=== PATIENT | female | born 1965 | race Caucasian/White ===

== ENCOUNTER 2020-01-18 09:21 | Emergency (ER) | payer MEDICARE, OTHER ==
[~2020-01-18] VITALS: Ht 167.6 cm; Wt 65.0 kg
[2020-01-18] MEDS ORDERED: MEDROL4 M1 PO (09:51)
[2020-01-18] MEDS ORDERED: GABAPENTIN100 MG PO (09:51)
[2020-01-18] MEDS ORDERED: LASIX 40 MG TAB40 MG PO (09:52)
[2020-01-18] MEDS ORDERED: KLOR-CON SPRIN10 MEQ PO (09:52)
[2020-01-18] MEDS ORDERED: BACLOFEN10 MG PO (09:53)
[2020-01-18] MEDS ORDERED: XANAX0.5 MG PO (09:54)
[2020-01-18] MEDS ORDERED: ULTRAM50 MG PO (11:12)
[2020-01-18] MEDS ORDERED: KEFLEX500 MG PO (11:12)
[2020-01-18 11:50] VITALS: BP 91/52
== END 2020-01-18 11:50 | disposition home or self-care (01) ==
LOC: ED 09:21
DX: S00.03XA Contusion of scalp, initial encounter (principal); S16.1XXA Strain of muscle, fascia and tendon at neck level, initial encounter; S30.0XXA Contusion of lower back and pelvis, initial encounter; S80.812A Abrasion, left lower leg, initial encounter; S80.811A Abrasion, right lower leg, initial encounter; I95.9 Hypotension, unspecified; W07.XXXA Fall from chair, initial encounter; Y93.89 Activity, other specified

== ENCOUNTER 2020-02-04 18:46 | Emergency (ER) | payer MEDICARE, OTHER ==
[~2020-02-04] VITALS: Ht 167.6 cm; Wt 62.7 kg
[~2020-02-04 18:46] MED LIST: BACLOFEN10 MG PO; GABAPENTIN100 MG PO; KEFLEX500 MG PO; KLOR-CON SPRIN10 MEQ PO; LASIX 40 MG TAB40 MG PO; MEDROL4 M1 PO; ULTRAM50 MG PO; XANAX0.5 MG PO
[2020-02-04] MEDS ORDERED: METHYLPRED4 MG PO (19:19)
[2020-02-04] MEDS ORDERED: PROCARDIA XL30 MG PO (19:21)
[2020-02-04] MEDS ORDERED: VIAGRA25 MG PO (19:21)
[2020-02-04] MEDS ORDERED: TRAMADOL HYDROC50 M1 PO (19:37)
[2020-02-04] MEDS ORDERED: KEFLEX500 M1 PO (19:37)
[2020-02-04 19:48] VITALS: BP 126/82
== END 2020-02-04 19:48 | disposition home or self-care (01) ==
LOC: ED 18:46
DX: S81.811A Laceration without foreign body, right lower leg, initial encounter (principal); L08.9 Local infection of the skin and subcutaneous tissue, unspecified; F17.210 Nicotine dependence, cigarettes, uncomplicated; W19.XXXA Unspecified fall, initial encounter

== ENCOUNTER 2020-07-21 11:40 | Emergency (ER) | payer MEDICARE, OTHER ==
[~2020-07-21] VITALS: Ht 167.6 cm; Wt 68.0 kg
[~2020-07-21 11:40] MED LIST changes: +KEFLEX500 M1 PO; -KLOR-CON SPRIN10 MEQ PO; +METHYLPRED4 MG PO; +POTASSIUM CHLO10 ME3 PO; +PROCARDIA XL30 MG PO; +TRAMADOL HYDROC50 M1 PO; +VIAGRA25 MG PO
[2020-07-21] MEDS ORDERED: FAMCICLOVIR500 MG PO ×2 (12:47→12:50)
[2020-07-21] MEDS ORDERED: TRAMADOL HYDROC50 M1 PO (12:47)
[2020-07-21] MEDS ORDERED: NEURONTIN300 MG PO (12:56)
[2020-07-21] MEDS ORDERED: ULTRAM50 M1 PO (12:58)
[2020-07-21 13:05] VITALS: BP 120/70
[2020-07-22] MEDS ORDERED: LIDOCAINE TOP (12:36)
== END 2020-07-21 13:05 | disposition home or self-care (01) ==
LOC: ED 11:40
DX: B02.9 Zoster without complications (principal); J44.9 Chronic obstructive pulmonary disease, unspecified; F17.210 Nicotine dependence, cigarettes, uncomplicated

== ENCOUNTER 2020-07-27 16:01 | Emergency (ER) | payer MEDICARE, OTHER ==
[~2020-07-27] VITALS: Ht 167.6 cm; Wt 72.0 kg
[~2020-07-27 16:01] MED LIST changes: +FAMCICLOVIR500 MG PO; +LIDOCAINE TOP; +NEURONTIN300 MG PO; +ULTRAM50 M1 PO
[2020-07-27] MEDS ORDERED: VALTREX1 GM PO (16:49)
[2020-07-27 16:56] VITALS: BP 112/68
== END 2020-07-27 17:03 | disposition home or self-care (01) ==
LOC: ED 16:01
DX: B02.9 Zoster without complications (principal); J44.9 Chronic obstructive pulmonary disease, unspecified; F17.200 Nicotine dependence, unspecified, uncomplicated

== ENCOUNTER 2021-04-05 13:59 | Emergency (ER) | payer MEDICARE, OTHER ==
[~2021-04-05] VITALS: Ht 167.6 cm; Wt 54.5 kg
[~2021-04-05 13:59] MED LIST changes: +VALTREX1 GM PO
[2021-04-05] MEDS ORDERED: KEFLEX500 MG PO (15:24)
[2021-04-05 16:04] VITALS: BP 120/87
== END 2021-04-05 15:55 | disposition home or self-care (01) ==
LOC: ED 13:59
DX: S81.812A Laceration without foreign body, left lower leg, initial encounter (principal); J44.9 Chronic obstructive pulmonary disease, unspecified; F17.210 Nicotine dependence, cigarettes, uncomplicated; W22.8XXA Striking against or struck by other objects, initial encounter; Y92.009 Unspecified place in unspecified non-institutional (private) residence as the place of occurrence of the external cause

== ENCOUNTER 2022-06-15 11:43 | Emergency (ER) | payer MEDICARE, MEDICAID ==
[~2022-06-15] VITALS: Ht 167.6 cm; Wt 54.8 kg
[2022-06-15 12:25] VITALS: BP 144/85
[2022-06-15 12:30] VITALS: BP 142/77
[2022-06-15 12:45] VITALS: BP 119/75
[2022-06-15 12:59] LABS: URINE BILIRUBIN - DIPSTICK NEGATIVE (NEGATIVE); URINE BLOOD DIPSTICK SMALL (NEGATIVE); URINE COLOR YELLOW; URINE GLUCOSE - DIPSTICK NEGATIVE (NEGATIVE); URINE KETONE NEGATIVE (NEGATIVE); URINE LEUK ESTERASE NEGATIVE (NEGATIVE); URINE PH 6.5 (4.5-8.0); URINE PROTEIN - DIPSTICK NEGATIVE (NEG-TRACE); URINE SPECIFIC GRAVITY <=1.005; URINE UROBILINOGEN - DIPSTICK 0.2 E.U./dL (0.2)
[2022-06-15 13:03] LABS: URINE NITRITE - DIPSTICK POSITIVE (Negative)
[2022-06-15 13:04] LABS: URINE RBC 0-2 RBC/hpf (0-5)
[2022-06-15 13:05] LABS: URINE BACTERIA RARE hpf
[2022-06-15] MEDS ORDERED: NAPROXEN500 MG PO (13:11)
[2022-06-15] MEDS ORDERED: LORTAB 5/3255 MG PO (13:11)
[2022-06-15] MEDS ORDERED: METHOCARBAMOL500 MG PO (13:11)
[2022-06-15] MEDS ORDERED: PREDNISONE20 MG PO (13:11)
[2022-06-15] MEDS ORDERED: LORTAB 7.57.5 MG PO (14:44)
[2022-06-15 15:20] VITALS: BP 144/85
[2022-06-15] MEDS ORDERED: PREDNISONE10 MG PO (15:32)
== END 2022-06-15 15:20 | disposition home or self-care (01) ==
LOC: ED 11:43
PROVIDERS: Nurse Practitioner
DX: M47.26 Other spondylosis with radiculopathy, lumbar region (principal); R82.71 Bacteriuria; J44.9 Chronic obstructive pulmonary disease, unspecified; M06.9 Rheumatoid arthritis, unspecified; F17.200 Nicotine dependence, unspecified, uncomplicated

== ENCOUNTER 2022-06-19 11:33 | Emergency (ER) | payer MEDICARE, MEDICAID ==
[~2022-06-19] VITALS: Ht 167.6 cm; Wt 63.0 kg
[2022-06-19] VITALS (8 sets, daily range): BP systolic 134–165; BP diastolic 75–90
[~2022-06-19 11:33] MED LIST changes: +LORTAB 5/3255 MG PO; +LORTAB 7.57.5 MG PO; +METHOCARBAMOL500 MG PO; +NAPROXEN500 MG PO; +PREDNISONE10 MG PO; +PREDNISONE20 MG PO
[2022-06-19] MEDS ORDERED: WALKER/ADULT/FOLDING (12:55)
[2022-06-19] MEDS ORDERED: NAPROXEN500 MG PO (12:55)
[2022-06-19] MEDS ORDERED: BEDSIDE COMMODE (12:55)
== END 2022-06-19 13:01 | disposition home or self-care (01) ==
LOC: ED 11:33
DX: M25.551 Pain in right hip (principal); M25.561 Pain in right knee; M06.9 Rheumatoid arthritis, unspecified; I77.6 Arteritis, unspecified; I73.00 Raynaud's syndrome without gangrene; J45.909 Unspecified asthma, uncomplicated

== ENCOUNTER 2022-06-20 13:03 | Emergency (ER) | payer MEDICARE, MEDICAID ==
[~2022-06-20] VITALS: Ht 167.6 cm; Wt 63.0 kg
[~2022-06-20 13:03] MED LIST changes: +BEDSIDE COMMODE; +WALKER/ADULT/FOLDING
[2022-06-20 13:23] VITALS: BP 139/77
[2022-06-20 13:30] VITALS: BP 133/70
[2022-06-20 13:45] VITALS: BP 124/69
[2022-06-20 15:42] VITALS: BP 124/69
== END 2022-06-20 15:57 | disposition home or self-care (01) ==
LOC: ED 13:03
DX: M25.561 Pain in right knee (principal); J44.9 Chronic obstructive pulmonary disease, unspecified; M06.9 Rheumatoid arthritis, unspecified; F17.200 Nicotine dependence, unspecified, uncomplicated

== ENCOUNTER 2022-06-26 14:21 | Emergency (ER) | payer MEDICARE, MEDICAID ==
[~2022-06-26] VITALS: Ht 167.6 cm; Wt 62.0 kg
[2022-06-26 14:28] VITALS: BP 130/77
[2022-06-26 14:48] LABS: BASO% 0.1 % (0-3); HEMATOCRIT 43.6 % (37.0-47.0); HEMOGLOBIN 13.3 g/dl (12.0-16.0); IMMATURE GRANULOCYTES 2.1 % (0.0-5.0); LYMPH% 4.1 % (15-41); MEAN CELL VOLUME 101.4 fL CALC (80.0-100.0); MEAN CORPUSCULAR HGB 30.9 pG CALC (26.0-32.0); MEAN CORPUSCULAR HGB CONC 30.5 g/dL CAL (32.0-36.0); MONO% 3.3 % (2-13); NEUT# 17.29 thou/uL (2.00-7.15); NEUT% 90.4 % (42-76); RED BLOOD COUNT 4.3 mill/uL (4.20-5.60); RED CELL DISTRI WIDTH 15.3 % (11.5-15.5)
[2022-06-26 15:01] LABS: ALBUMIN 4.2 g/dL (3.2-5.0); ALKALINE PHOSPHATASE 138 u/l (38-126); ANION GAP 13 (6-22 (CALC)); BILIRUBIN, TOTAL 0.6 mg/dL (0.02-1.3); BUN 25 mg/dL (7-17); BUN/CREATININE RATIO 27 (12-20 (CALC)); CARBON DIOXIDE 32 mmol/l (22-30); CHLORIDE 97 mmol/l (95-108); CREATININE 0.9 mg/dL (0.5-1.0); GFR FOR AFR.AMER. > 60 ML/MIN (>=60 (CALC)); GFR OTHER RACES > 60 ML/MIN (>=60 (CALC)); POTASSIUM 4.3 mmol/l (3.5-5.1); SGOT/AST 32 u/l (14-36); SODIUM 138 mmol/l (137-146); TOTAL PROTEIN 7.3 g/dL (6.3-8.2)
[2022-06-26 15:50] VITALS: BP 114/74
[2022-06-26 16:00] VITALS: BP 119/62
[2022-06-26 16:30] VITALS: BP 120/75
[2022-06-26] MEDS ORDERED: DOXY-CAPS100 MG PO (18:18)
[2022-06-26] MEDS ORDERED: IPRATROPIU0.5 MG/3 M IN (18:18)
[2022-06-26 18:27] VITALS: BP 120/75
== END 2022-06-26 18:53 | disposition left against medical advice (07) ==
LOC: ED 14:21 → ED-I 16:05 → ED 18:53
PROVIDERS: Family Medicine
DX: J44.1 Chronic obstructive pulmonary disease with (acute) exacerbation (principal); I50.9 Heart failure, unspecified; M06.9 Rheumatoid arthritis, unspecified; F17.210 Nicotine dependence, cigarettes, uncomplicated; Z53.29 Procedure and treatment not carried out because of patient's decision for other reasons

== ENCOUNTER 2022-06-29 13:16 | Observation (INO) | payer MEDICARE, MEDICAID ==
[~2022-06-29] VITALS: Ht 165.1 cm; Wt 59.0 kg
[2022-06-29] VITALS (26 sets, daily range): BP systolic 121–214; BP diastolic 61–122
[~2022-06-29 13:16] MED LIST changes: +DOXY-CAPS100 MG PO; +IPRATROPIU0.5 MG/3 M IN
[2022-06-29 14:51] LABS: HEMATOCRIT 42.9 % (37.0-47.0); HEMOGLOBIN 13.4 g/dl (12.0-16.0); IMMATURE GRANULOCYTES 5.4 % (0.0-5.0); LYMPH% 4.9 % (15-41); MEAN CELL VOLUME 100.7 fL CALC (80.0-100.0); MEAN CORPUSCULAR HGB 31.5 pG CALC (26.0-32.0); MEAN CORPUSCULAR HGB CONC 31.2 g/dL CAL (32.0-36.0); MONO% 4.5 % (2-13); NEUT# 11.77 thou/uL (2.00-7.15); NEUT% 85.2 % (42-76); RED BLOOD COUNT 4.26 mill/uL (4.20-5.60); RED CELL DISTRI WIDTH 15.1 % (11.5-15.5)
[2022-06-29 15:05] LABS: BUN 31 mg/dL (7-17); BUN/CREATININE RATIO 37 (12-20 (CALC)); CARBON DIOXIDE 37 mmol/l (22-30); CHLORIDE 97 mmol/l (95-108); CREATININE 0.8 mg/dL (0.5-1.0); GFR FOR AFR.AMER. > 60 ML/MIN (>=60 (CALC)); GFR OTHER RACES > 60 ML/MIN (>=60 (CALC)); SODIUM 138 mmol/l (137-146)
[2022-06-29 15:06] LABS: ALBUMIN 4.2 g/dL (3.2-5.0); ALKALINE PHOSPHATASE 146 u/l (38-126); ANION GAP 9 (6-22 (CALC)); BILIRUBIN, TOTAL 0.6 mg/dL (0.02-1.3); SGOT/AST 29 u/l (14-36); TOTAL PROTEIN 7.1 g/dL (6.3-8.2)
[2022-06-29] MEDS ORDERED: BUMETANIDE1 MG PO (17:50)
[2022-06-29] MEDS ORDERED: METHOCARBAMOL500 MG PO ×2 (17:50→17:51)
[2022-06-29] MEDS ORDERED: NEURONTIN300 MG PO (17:50)
[2022-06-29] MEDS ORDERED: XYZAL ALLERGY 245 MG PO (18:30)
[2022-06-29 19:00] LABS: BASO% 0.1 % (0-3); HEMATOCRIT 39.1 % (37.0-47.0); HEMOGLOBIN 12.1 g/dl (12.0-16.0); IMMATURE GRANULOCYTES 3.4 % (0.0-5.0); LYMPH% 5.6 % (15-41); MEAN CELL VOLUME 101.6 fL CALC (80.0-100.0); MEAN CORPUSCULAR HGB 31.4 pG CALC (26.0-32.0); MEAN CORPUSCULAR HGB CONC 30.9 g/dL CAL (32.0-36.0); MONO% 4.8 % (2-13); NEUT# 10.65 thou/uL (2.00-7.15); NEUT% 86.1 % (42-76); RED BLOOD COUNT 3.85 mill/uL (4.20-5.60); RED CELL DISTRI WIDTH 15.2 % (11.5-15.5)
[2022-06-30] VITALS (8 sets, daily range): BP systolic 126–151; BP diastolic 67–80
[2022-06-30 06:19] LABS: ALBUMIN 3.6 g/dL (3.2-5.0); ALKALINE PHOSPHATASE 123 u/l (38-126); ANION GAP 7 (6-22 (CALC)); BUN 27 mg/dL (7-17); BUN/CREATININE RATIO 33 (12-20 (CALC)); CARBON DIOXIDE 35 mmol/l (22-30); CHLORIDE 99 mmol/l (95-108); CREATININE 0.8 mg/dL (0.5-1.0); GFR FOR AFR.AMER. > 60 ML/MIN (>=60 (CALC)); GFR OTHER RACES > 60 ML/MIN (>=60 (CALC)); POTASSIUM 4.4 mmol/l (3.5-5.1); SGOT/AST 23 u/l (14-36); SODIUM 137 mmol/l (137-146); TOTAL PROTEIN 6.3 g/dL (6.3-8.2)
[2022-06-30 06:30] LABS: BILIRUBIN, TOTAL 0.3 mg/dL (0.02-1.3)
[2022-07-01 05:08] VITALS: BP 126/73
[2022-07-01 06:21] VITALS: BP 140/75
[2022-07-01 06:38] LABS: BASO% 0.2 % (0-3); EOS% 0.1 % (0-8); HEMATOCRIT 39.4 % (37.0-47.0); HEMOGLOBIN 12.3 g/dl (12.0-16.0); LYMPH% 14.8 % (15-41); MEAN CELL VOLUME 102.9 fL CALC (80.0-100.0); MEAN CORPUSCULAR HGB 32.1 pG CALC (26.0-32.0); MEAN CORPUSCULAR HGB CONC 31.2 g/dL CAL (32.0-36.0); MONO% 6.8 % (2-13); NEUT# 8.43 thou/uL (2.00-7.15); NEUT% 71.6 % (42-76); RED BLOOD COUNT 3.83 mill/uL (4.20-5.60); RED CELL DISTRI WIDTH 15.2 % (11.5-15.5)
[2022-07-01 06:40] LABS: ALBUMIN 3.4 g/dL (3.2-5.0); ALKALINE PHOSPHATASE 122 u/l (38-126); ANION GAP 9 (6-22 (CALC)); BILIRUBIN, TOTAL 0.3 mg/dL (0.02-1.3); BUN 32 mg/dL (7-17); BUN/CREATININE RATIO 37 (12-20 (CALC)); CARBON DIOXIDE 33 mmol/l (22-30); CHLORIDE 99 mmol/l (95-108); CREATININE 0.9 mg/dL (0.5-1.0); GFR FOR AFR.AMER. > 60 ML/MIN (>=60 (CALC)); GFR OTHER RACES > 60 ML/MIN (>=60 (CALC)); POTASSIUM 4.1 mmol/l (3.5-5.1); SGOT/AST 26 u/l (14-36); SODIUM 137 mmol/l (137-146); TOTAL PROTEIN 5.7 g/dL (6.3-8.2)
[2022-07-01 06:44] LABS: IMMATURE GRANULOCYTES 6.5 % (0.0-5.0)
[2022-07-01 08:03] VITALS: BP 140/75
[2022-07-01] MEDS ORDERED: PERCOCET 10/31 COMBO PO (13:25)
[2022-07-01] MEDS ORDERED: LIDOCAINE PAIN RE4 % TD (13:25)
[2022-07-01] MEDS ORDERED: DIAZEPAM5 M1 PO (14:04)
[2022-07-01] MEDS ORDERED: METHOCARBAMOL500 MG PO (14:09)
== END 2022-07-01 15:53 ==
LOC: ED 13:16 → MS2 19:04
PROVIDERS: Nurse Practitioner; Nurse Practitioner Family; ADMIT Internal Medicine; ATTEND Internal Medicine
DX: M51.16 Intervertebral disc disorders with radiculopathy, lumbar region (principal); N39.498 Other specified urinary incontinence; J44.9 Chronic obstructive pulmonary disease, unspecified; M06.9 Rheumatoid arthritis, unspecified; I73.9 Peripheral vascular disease, unspecified; E03.9 Hypothyroidism, unspecified; F17.200 Nicotine dependence, unspecified, uncomplicated; S40.812A Abrasion of left upper arm, initial encounter; S40.811A Abrasion of right upper arm, initial encounter; S80.812A Abrasion, left lower leg, initial encounter; S80.811A Abrasion, right lower leg, initial encounter; X58.XXXA Exposure to other specified factors, initial encounter
CPT/HCPCS: J1650

== ENCOUNTER 2022-10-18 12:55 | Emergency (ER) | payer MEDICARE, MEDICAID ==
[~2022-10-18] VITALS: Ht 165.1 cm; Wt 57.0 kg
[~2022-10-18 12:55] MED LIST changes: +BUMETANIDE1 MG PO; +DIAZEPAM5 M1 PO; +LIDOCAINE PAIN RE4 % TD; +PERCOCET 10/31 COMBO PO; +XYZAL ALLERGY 245 MG PO
[2022-10-18 15:24] LABS: BASO% 0.2 % (0-3); EOS% 0.2 % (0-8); LYMPH% 8.1 % (15-41); MEAN CELL VOLUME 99.6 fL CALC (80.0-100.0); MEAN CORPUSCULAR HGB CONC 32.1 g/dL CAL (32.0-36.0); NEUT# 10.13 thou/uL (2.00-7.15); NEUT% 85.5 % (42-76); RED BLOOD COUNT 4.85 mill/uL (4.20-5.60); RED CELL DISTRI WIDTH 14.9 % (11.5-15.5)
[2022-10-18 15:25] LABS: HEMATOCRIT 48.3 % (37.0-47.0); HEMOGLOBIN 15.5 g/dl (12.0-16.0)
[2022-10-18 15:28] LABS: URINE BILIRUBIN - DIPSTICK Negative (NEGATIVE); URINE BLOOD DIPSTICK Trace-lysed (NEGATIVE); URINE GLUCOSE - DIPSTICK Negative (NEGATIVE); URINE KETONE Negative (NEGATIVE); URINE LEUK ESTERASE Negative (NEGATIVE); URINE NITRITE - DIPSTICK Negative (Negative); URINE PROTEIN - DIPSTICK Negative (NEG-TRACE); URINE SPECIFIC GRAVITY 1.015; URINE UROBILINOGEN - DIPSTICK 0.2 E.U./dL (0.2)
[2022-10-18 15:30] LABS: URINE COLOR Yellow
[2022-10-18 15:42] LABS: ALBUMIN 4.3 g/dL (3.2-5.0); ALKALINE PHOSPHATASE 116 u/l (38-126); ANION GAP 13 (6-22 (CALC)); BILIRUBIN, TOTAL 0.5 mg/dL (0.02-1.3); BUN 14 mg/dL (7-17); BUN/CREATININE RATIO 21 (12-20 (CALC)); CARBON DIOXIDE 32 mmol/l (22-30); CHLORIDE 95 mmol/l (95-108); CREATININE 0.7 mg/dL (0.5-1.0); GFR FOR AFR.AMER. > 60 ML/MIN (>=60 (CALC)); GFR OTHER RACES > 60 ML/MIN (>=60 (CALC)); POTASSIUM 3.5 mmol/l (3.5-5.1); SGOT/AST 30 u/l (14-36); SODIUM 136 mmol/l (137-146)
[2022-10-18 15:43] LABS: TOTAL PROTEIN 8.2 g/dL (6.3-8.2)
[2022-10-18 17:09] VITALS: BP 115/69
[2022-10-18] MEDS ORDERED: KEFLEX500 MG PO (17:20)
== END 2022-10-18 17:12 | disposition home or self-care (01) ==
LOC: ED 12:55
PROVIDERS: Emergency Medicine
DX: S60.222A Contusion of left hand, initial encounter (principal); L03.114 Cellulitis of left upper limb; R07.9 Chest pain, unspecified; J44.9 Chronic obstructive pulmonary disease, unspecified; M06.9 Rheumatoid arthritis, unspecified; X58.XXXA Exposure to other specified factors, initial encounter

== ENCOUNTER 2022-10-24 13:23 | Emergency (ER) | payer MEDICARE, MEDICAID ==
[~2022-10-24] VITALS: Ht 165.1 cm; Wt 57.1 kg
[2022-10-24] MEDS ORDERED: DOXYCYCLINE100 MG PO (13:42)
[2022-10-24 13:44] VITALS: BP 132/71
[2022-10-24 14:00] VITALS: BP 108/57
[2022-10-24] MEDS ORDERED: PEPCID20 MG PO (14:05)
[2022-10-24] MEDS ORDERED: ASPIRINCHW 81MG PO (14:06)
[2022-10-24] MEDS ORDERED: ATORVASTATIN CA20 MG PO (14:07)
[2022-10-24 15:18] VITALS: BP 108/57
== END 2022-10-24 15:24 | disposition home or self-care (01) ==
LOC: ED 13:23
DX: M54.42 Lumbago with sciatica, left side (principal); J44.9 Chronic obstructive pulmonary disease, unspecified; M06.9 Rheumatoid arthritis, unspecified; F17.200 Nicotine dependence, unspecified, uncomplicated

== ENCOUNTER 2023-09-27 12:33 | Emergency (ER) | payer MEDICARE, MEDICAID ==
[2023-09-27] VITALS (9 sets, daily range): BP systolic 117–156; BP diastolic 57–87
[~2023-09-27] VITALS: Ht 165.1 cm; Wt 58.0 kg
[~2023-09-27 12:33] MED LIST changes: +ASPIRINCHW 81MG PO; +ATORVASTATIN CA20 MG PO; +BACTRIM DS1 TAB PO; +DOXYCYCLINE100 MG PO; +MELOXICAM7.5 MG PO; +PEPCID20 MG PO; +TORADOL PO
[2023-09-27] MEDS ORDERED: MORPHINE SULFATE 4 MG/ML VIAL IV ONE ×2 (13:05→14:55)
[2023-09-27] MEDS ORDERED: SODIUM CHLORIDE 0.9% 1,000 ML IV ONE (13:05)
[2023-09-27] MEDS ORDERED: ONDANSETRON HCl 4 MG/2 ML SDV IV ONE (13:05)
[2023-09-27 13:39] LABS: BASO% 0.2 % (0-3); EOS% 0.2 % (0-8); HEMATOCRIT 40.1 % (37.0-47.0); HEMOGLOBIN 12.8 g/dl (12.0-16.0); IMMATURE GRANULOCYTES 4.9 % (0.0-5.0); LYMPH% 11.6 % (15-41); MEAN CELL VOLUME 100.3 fL CALC (80.0-100.0); MEAN CORPUSCULAR HGB CONC 31.9 g/dL CAL (32.0-36.0); MONO% 5.9 % (2-13); NEUT# 8.17 thou/uL (2.00-7.15); NEUT% 77.2 % (42-76); RED CELL DISTRI WIDTH 14.3 % (11.5-15.5)
[2023-09-27 14:00] LABS: ALBUMIN 3.8 g/dL (3.2-5.0); BILIRUBIN, TOTAL 0.5 mg/dL (0.02-1.3); C-REACTIVE PROTEIN 4.2 mg/dL (0-0.9); CREATININE 0.8 mg/dL (0.5-1.0); TOTAL PROTEIN 6.5 g/dL (6.3-8.2)
[2023-09-27] MEDS ORDERED: KETOROLAC TROMETHAMINE 30 MG/ML SDV IV ONE (14:55)
[2023-09-27] MEDS ORDERED: CIPROFLOXACN500 MG PO (15:57)
[2023-09-27] MEDS ORDERED: TORADOL PO (15:59)
== END 2023-09-27 16:18 | disposition home or self-care (01) ==
LOC: ED 12:33
PROVIDERS: Nurse Practitioner
DX: L03.113 Cellulitis of right upper limb (principal); B95.61 Methicillin susceptible Staphylococcus aureus infection as the cause of diseases classified elsewhere; B96.4 Proteus (mirabilis) (morganii) as the cause of diseases classified elsewhere; J44.9 Chronic obstructive pulmonary disease, unspecified; I50.9 Heart failure, unspecified; I25.10 Atherosclerotic heart disease of native coronary artery without angina pectoris; E78.5 Hyperlipidemia, unspecified

== ENCOUNTER 2023-09-30 10:30 | Emergency (ER) | payer MEDICARE, MEDICAID ==
[~2023-09-30] VITALS: Ht 165.1 cm; Wt 54.0 kg
[~2023-09-30 10:30] MED LIST changes: +CIPROFLOXACN500 MG PO
[2023-09-30 10:44] VITALS: BP 134/83
[2023-09-30 11:00] VITALS: BP 138/79
[2023-09-30 11:30] VITALS: BP 140/89
[2023-09-30] MEDS ORDERED: CLINDAMYCIN PHOSPHATE 50 ML IV ONE (11:55)
[2023-09-30 12:00] VITALS: BP 123/83
[2023-09-30 12:30] VITALS: BP 120/71
[2023-09-30] MEDS ORDERED: BACTRIM DS1 TAB PO (12:57)
[2023-09-30 13:03] VITALS: BP 84/68
== END 2023-09-30 13:28 | disposition home or self-care (01) ==
LOC: ED 10:30
DX: L03.113 Cellulitis of right upper limb (principal); J44.9 Chronic obstructive pulmonary disease, unspecified; F17.200 Nicotine dependence, unspecified, uncomplicated
CPT/HCPCS: J0736

== ENCOUNTER 2023-10-15 12:12 | Emergency (ER) | payer MEDICARE, MEDICAID ==
[~2023-10-15] VITALS: Ht 165.1 cm; Wt 54.0 kg
[2023-10-15 12:21] VITALS: BP 124/81
[2023-10-15 12:30] VITALS: BP 110/76
[2023-10-15] MEDS ORDERED: KETOROLAC TROMETHAMINE 30 MG/ML SDV IM ONE (12:40)
[2023-10-15 13:00] VITALS: BP 125/74
[2023-10-15] MEDS ORDERED: LIDOcaine HCl 1% (Local Anesth.) 20 ML VIAL IM STA (13:17)
[2023-10-15] MEDS ORDERED: cefTRIAXone SODIUM 1 GM/VIAL SDV IM ONE (13:20)
[2023-10-15 13:30] VITALS: BP 128/79
[2023-10-15 14:38] VITALS: BP 128/79
== END 2023-10-15 14:40 | disposition home or self-care (01) ==
LOC: ED 12:12
DX: M79.641 Pain in right hand (principal); J44.9 Chronic obstructive pulmonary disease, unspecified; M06.9 Rheumatoid arthritis, unspecified; F17.200 Nicotine dependence, unspecified, uncomplicated

== ENCOUNTER 2023-12-28 10:44 | Emergency (ER) | payer MEDICARE, MEDICAID ==
[~2023-12-28] VITALS: Ht 165.1 cm; Wt 52.1 kg
[2023-12-28 11:41] LABS: BASO% 0.1 % (0-3); EOS% 0.1 % (0-8); HEMATOCRIT 46.4 % (37.0-47.0); HEMOGLOBIN 14.5 g/dl (12.0-16.0); IMMATURE GRANULOCYTES 2.4 % (0.0-5.0); LYMPH% 8.2 % (15-41); MEAN CELL VOLUME 103.3 fL CALC (80.0-100.0); MEAN CORPUSCULAR HGB 32.3 pG CALC (26.0-32.0); MEAN CORPUSCULAR HGB CONC 31.3 g/dL CAL (32.0-36.0); MONO% 5.1 % (2-13); NEUT# 9.69 thou/uL (2.00-7.15); NEUT% 84.1 % (42-76); RED BLOOD COUNT 4.49 mill/uL (4.20-5.60); RED CELL DISTRI WIDTH 14.9 % (11.5-15.5)
[2023-12-28 11:51] LABS: BILIRUBIN, TOTAL 0.4 mg/dL (0.02-1.3); POTASSIUM 4.5 mmol/l (3.5-5.1); TOTAL PROTEIN 6.6 g/dL (6.3-8.2)
[2023-12-28] MEDS ORDERED: cefTRIAXone SODIUM 2 GM in SODIUM CHLORIDE 0.9% 100 ML IV ONE (12:45)
[2023-12-28] MEDS ORDERED: VANCOMYCIN HCL 1 GM in SODIUM CHLORIDE 0.9% 250 ML IV ONE (12:45)
[2023-12-28] MEDS ORDERED: SODIUM CHLORIDE 0.9% 1,000 ML IV ONE (13:15)
[2023-12-28] MEDS ORDERED: VANCOMYCIN HCL 1 GM/VIAL IV ONE (13:15)
[2023-12-28 13:30] VITALS: BP 113/75
[2023-12-28 15:25] VITALS: BP 113/75
== END 2023-12-28 15:49 | disposition left against medical advice (07) ==
LOC: ED 10:44
PROVIDERS: Family Medicine
DX: L03.115 Cellulitis of right lower limb (principal); J44.9 Chronic obstructive pulmonary disease, unspecified; M06.9 Rheumatoid arthritis, unspecified; Z53.29 Procedure and treatment not carried out because of patient's decision for other reasons